=== PATIENT | female | born 1935 | race Caucasian/White ===

== ENCOUNTER 2020-08-09 20:16 | Inpatient (IN) | payer OTHER ==
[~2020-08-09] VITALS: Ht 157.5 cm; Wt 73.7 kg
[2020-08-09 20:16] VITALS: BP 121/60
[2020-08-09 21:01] LABS: HEMOGLOBIN 13.6 gm/dL (12.0-15.0); RDW 16.2 % (10.5-14.5)
[2020-08-09 21:02] LABS: ABSOLUTE NEUTROPHILS 4.1 thou/uL (1.4-8.2); BASOPHILS 0.6 % (0.0-2.0); EOSINOPHILS 3.6 % (0.0-3.0); HEMATOCRIT 41.5 % (37.0-47.0); LYMPHOCYTES 33.6 % (24.0-44.0); MCH 31.6 pg (26.0-34.0); MCHC 32.7 g/dL (28.0-37.0); MCV 96.5 fL (80.0-100.0); MONOCYTES 7.1 % (1.0-8.0); PLATELET COUNT 229 thou/uL (150-400); POLYS 55.1 % (36.0-66.0); WBC 7.4 thou/uL (4.0-11.0)
[2020-08-09 21:06] LABS: ANION GAP 11 mmol/L (7-16); BUN 12 mg/dL (7-18); CALCIUM 8.9 mg/dL (8.5-10.1); CHLORIDE 101 mmol/L (98-107); CO2 26 mmol/L (21-32); CREATININE 1.4 mg/dL (0.6-1.0); GLUCOSE 245 mg/dL (74-106); POTASSIUM 3.8 mmol/L (3.5-5.1); SODIUM 138 mmol/L (136-145)
[2020-08-09 21:13] LABS: ALBUMIN 3.2 g/dL (3.4-5.0); SGOT 25 U/L (15-37); SGPT 26 U/L (30-65); TOTAL BILIRUBIN 0.4 mg/dL (0.2-1.0)
[2020-08-09 21:22] LABS: URINE BILIRUBIN NEGATIVE (Negative); URINE BLOOD 1+ (Negative); URINE CLARITY CLEAR; URINE COLOR YELLOW; URINE GLUCOSE-RANDOM* NEGATIVE (Negative); URINE KETONES NEGATIVE (Negative); URINE LEUKOCYTES-REFLEX 3+ (Negative); URINE NITRITE-REFLEX NEGATIVE (Negative); URINE PROTEIN (DIPSTICK) NEGATIVE (Negative); URINE SPECIFIC GRAVITY 1.025 (1.005-1.035); URINE UROBILINOGEN 0.2 E.U./dl (0.2-1.0)
[2020-08-09 21:27] LABS: BACTERIA-REFLEX >30 Many /HPF (None Seen); URINE WBC-REFLEX >25 Many /HPF (0-5)
[2020-08-09 21:28] LABS: CASTS None Seen /LPF (None Seen); CRYSTALS None Seen /LPF (None Seen); SQUAMOUS 0-3 Few /LPF (0-3); URINE RBC 0-2 Rare /HPF (0-2)
[2020-08-09 21:32] LABS: AMP/METHAMP Negative (Negative); BARBITURATES Negative (Negative); BENZODIAZEPINES Negative (Negative); COCAINE Negative (Negative); METHADONE Negative (Negative); OPIATES Negative (Negative); PCP Negative (Negative)
[2020-08-09 21:32] LABS: SALICYLATE < 2.8 mg/dL (2.8-20.0)
--- NOTE | 2020-08-10 03:41 | NUR ---
IN ED OBS WAITING ON COVID19 RESULTS. REFERRED FROM [facility] FOR AGITATION, UTI, REFUSING MEDS AND AMS. WAS POSITIVE FOR COVID19 ON , STARTED ON CEPHALEXIN 500 FIRST DOSE @ 0304. ORIENTED X2, REPORTS IS NOT SURE WHY SHE IS AT THE HOSPITAL, BELIEVES SHE IS STILL @ [facility]. REPORTS A GOOD APPETITE, IS ON CARB CONTROL DIET. REPORTS 5 STINTS IN THE HEART. REPORTS CAN AMBULATE WITH A WALKER AND X1 ASSIST TO "WALK BEHIND ME WITH A CHAIR IN CASE I FALL. DOES NOT HAVE DENTURES, REPORTS CAN BRUSH TEETH BY SELF, REPORTS NEEDS HELP WITH [facility]. MEDICAL HX FROM [facility]: DEMENTIA WITH LEWY BODIES, ENCEPHALOPATHY, TYPE 2 DIABETES MELLITUS WITH DIABETIC NEUROPATHY, HTN HEART DISEASE WITH HEART FAILURE, CHRONIC PANCREATITIS, LYMPHEDEMA, CONGESTIVE HEART FAILURE, POLYOSTEOARTHRITIS, HYPOTHYROIDISM, HYPERLIPEDEMIA, MAJOR DEPRESSIVE DISORDER. 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 PATIENT IS A DNR, WITH SIGNED DOCUMENTATION IN CHART. [place] [phone]
--- NOTE | 2020-08-10 07:25 | EKG ---
[facility] [place] [address] ELECTROCARDIOGRAM REPORT Name: BAIRON FONTAINE Room #: 170-23 ADM IN M.R.#: [id number] Admission: 08/09/20 Attend Phys: Wilbur Reyes MD Discharge: Date of : 35 Report #: [id number] THIS REPORT FOR: cc: Naveed Muro MD, Dennis R MD Santiago, Patrick MD [facility] ~ THIS REPORT FOR: //name// [facility] ED Test Date: 2020-08-09 Test Time: 20:35:28 Pat Name: BAIRON FONTAINE Department: Room: 170 Gender: F Fill Manager: : 1935 Requested By: Marquita Atwood Order Number: [id number] MD: Rob Patricia Measurements Intervals [place] Rate: 83 P: -85 FL: 197 QRS: -71 QRSD: 146 T: 95 QT: 450 QTc: 529 Interpretive Statements Sinus or ectopic atrial rhythm Consider left atrial enlargement Right bundle branch block LVH with IVCD and secondary repol abnrm Probable inferior infarct, old Prolonged QT interval No previous ECG available for comparison Electronically Signed On 08-10-2020 7:25:14 [employer]NUT [employer]NER by Rob Patricia [email or web address] <ELECTRONICALLY SIGNED> By: Rob Patricia MD, FACC 08/10/20724 34 34 Rob Patricia MD, FAC /EPI
[2020-08-10] MEDS ORDERED: TYLENOL EXTRA500 MG PO (08:32)
[2020-08-10] MEDS ORDERED: ASA81BEC PO (08:33)
[2020-08-10] MEDS ORDERED: BUSPIRONE HCL5 MG PO (08:33)
[2020-08-10] MEDS ORDERED: LIPITOR40 MG PO (08:33)
[2020-08-10] MEDS ORDERED: COREG6.25 MG PO (08:34)
[2020-08-10] MEDS ORDERED: LEVEMIR100 UNIT/1 SUBQ (08:35)
[2020-08-10] MEDS ORDERED: COLACE100 MG PO (08:35)
[2020-08-10] MEDS ORDERED: EUTHYROX100 MCG PO (08:36)
[2020-08-10] MEDS ORDERED: MILK OF MA400 MG/5 M PO (08:37)
[2020-08-10] MEDS ORDERED: NOVOLOG100 UNIT/M SUBQ (08:38)
[2020-08-10] MEDS ORDERED: NOVOLOG100 UNIT/1 SUBQ (08:38)
[2020-08-10] MEDS ORDERED: SEROQUEL 50 MG50 M1 PO (08:39)
--- NOTE | 2020-08-10 09:55 | NUR ---
THIS NURSE GAVE PT POC UPDATE TO DPOA DAUGHTER ROSEANNA HARRINGTON.
[2020-08-10 10:41] LABS: FOLIC ACID 6.8 ng/mL (8.6-58.9); TSH 41.041 uIU/mL (0.358-3.740)
[2020-08-10 12:37] VITALS: BP 130/70
[2020-08-10 15:24] VITALS: BP 130/77
--- NOTE | 2020-08-10 18:30 | NUR ---
[age] OLD FEMALE ADMITTED TO [facility] ROOM 361. PT WAS BROUGHT INTO THE ER PER EMS AFTER BEING AGRESSIVE TOWARDS CARE HOME STAFF. PT HAS BEEN CLAM AND COOPERATIVE, WITH A BLUNTED AFFECT ON ADMISSION TO [facility]. PT DID REFUSE TO SIGN ADMISSION FORMS. VSS. PT DENIES PAIN/SOA. PT ATE SMALL PORTION OF DINNER. PLACED IN ISOLATION FOR POSIIVE COVID TEST. WILL CONTINUE TO MONITOR.
[2020-08-10 19:24] VITALS: BP 143/96
[2020-08-11 04:21] VITALS: BP 167/83
[2020-08-11 05:07] LABS: GLYCOHEMOGLOBIN (HGB A1C) 7.8 % (4.8-5.6)
--- NOTE | 2020-08-11 05:44 | NUR ---
Pt. rested quietly during the night when checked on during frequent rounds. She does get combative at times during direct care. Pt. refused all of her meds during the shift. Incontinent of urine and tony care given. Bed alarm is on.
[2020-08-11 05:51] LABS: HEMATOCRIT 43.5 % (37.0-47.0); HEMOGLOBIN 14.4 gm/dL (12.0-15.0); MCH 32.2 pg (26.0-34.0); MCV 97.5 fL (80.0-100.0); PLATELET COUNT 235 thou/uL (150-400); RBC 4.47 mil/uL (4.20-5.00); RDW 16.2 % (10.5-14.5); WBC 14.3 thou/uL (4.0-11.0)
[2020-08-11 06:07] LABS: MAGNESIUM 1.5 mg/dL (1.8-2.4)
[2020-08-11 08:00] VITALS: BP 140/83
[2020-08-11 08:58] LABS: ABSOLUTE NEUTROPHILS 7.2 thou/uL (1.4-8.2); NUCLEATED RBCS 1 /100WBC; PLATELET ESTIMATE NORMAL
[2020-08-11 11:00] VITALS: BP 135/85
[2020-08-11 15:00] VITALS: BP 91/55
--- NOTE | 2020-08-11 18:48 | NUR ---
ASSUMED PATIENT CARE AT 0700. ALERT. CONFUSED AND AGITATED. INCONTNUE. GOOD APPETITE. VSS, SLOWLY TOWARDS POC GOALS.
[2020-08-11 19:48] VITALS: BP 89/67
[2020-08-12 03:59] VITALS: BP 100/61
[2020-08-12 08:01] VITALS: BP 107/60
[2020-08-12 15:19] VITALS: BP 124/62
--- NOTE | 2020-08-12 15:33 | NUR ---
Patient admits from [facility] to be admitted to [facility]. Patient tested positive for COVID and diverted to COVID unit. Left message with [facility] Admissions. Sp with dtr. She reports patient prev was living at [facility] for 6 years then Admitted to [facility] December 03. December 09 the facility shut down. Dtr was unable to decorate her room or prepare her for transition. Patient was tested and resulted COVID positive on JUL 05. She reports [facility] has different levels of COVID units. She reports patient on COVID unit then after 10 days goes to another unit. Dtr reports she is familiar with patients diagnosis of Lewy Body dementia. She reports she can be combative. She is concerned with her not eating and drinking. She reports the lock down has been very difficult for her and the moving around within the facility. She has seen patient through window and patient has said "what did I do to deserve this." Tenative plan for [facility] then transition to [facility] once stable.
--- NOTE | 2020-08-12 19:12 | NUR ---
ASSUMED PATIENT CARE AT 0700. CONFUSED. REFUSED TO HACE MEDS. AFEBRILE. VSS. SLOWLY TOWARDS POC GOALS.
[2020-08-12 19:34] VITALS: BP 131/65
--- NOTE | 2020-08-13 03:50 | NUR ---
Patient making slow progress towards outcome goals. Patient with periods on combativeness, hitting staff and throwing what she can reach. Security called for assistance in administering medications. High fall risks, fall precautions in place. COVID positive. On room air. No breathing difficulty. Incontinent or urine.
[2020-08-13 04:23] VITALS: BP 150/73
[2020-08-13 08:16] VITALS: BP 132/79
--- NOTE | 2020-08-13 10:58 | NUR ---
PT. WAS COMBATIVE THIS MORNING WHEN I WENT OT GIVE HER A SHOT BUT THEN CALMED DOWN QUICKKLY ONCE THAT WAS OVER WITH. SHE TOLD ME HER SON HAD BUT THEN WHEN I TALKED TO THE DAUGHTER THIS WAS NOT TRUE-CONFUSION. OVERALL MUCH CALMER THIS AM THEN LAST NIGHT. BREATHING ON ROOM AIR WITH SATURATIONS IN THE MID 90'S WITH NO SIGNS OF RESPIRATORY DISTRESS. IV FLUSHED NO SING'S OF DISTRESS.
--- NOTE | 2020-08-13 14:44 | NUR ---
SW reviewed chart and spoke with nursing and attending physician. Pt remains in Enhanced Isolation due to COVID-19. Pt is afebrile and not requiring O2. Pt is on IV abx. Discussed case with Infection Control to see if pt is able to be transferred to [facility]. Pt was admitted from [facility] for admission to [facility]. Awaiting input from ID physician. [facility] is following to assist as needed with discharge planning.
[2020-08-13 15:53] VITALS: BP 142/120
--- NOTE | 2020-08-13 17:38 | NUR ---
RECIEVED PATIENT ON UNIT FROM 3W AT APPROX. 1730 WITH MEAL TRAY. PATIENT WAS ALREADY EATING AND DECLINED COVERAGE WITH INSULIN. ON PRECAUTIONARY ISOLATION FOR COVID 19. PATIENT HAS A HX OF BEING COMBATIVE BUT NOT DISPLAYING ISSUES AT THIS TIME. WILL CONTINUE TO MONITOR AND ENDORSES TO NIGHT NURSE
--- NOTE | 2020-08-14 06:30 | NUR ---
Pt. has been awake most of the night when checked on during frequent rounds. She can be combative at times ecspecially during direct care. She attempted to bite at the epic director when changing her wet pad. Pt. also refused her bedtime meds, but took her am pills. Bed alarm is on.
[2020-08-14 07:58] VITALS: BP 133/64
--- NOTE | 2020-08-14 14:55 | NUR ---
ASSUMED PT CARE THIS AM. PT VSS. PT CALM AND COOPERATIVE WITH STAFF. PT MAKES STATEMENTS THAT SHE DOESN'T WANT TO BE HURT, AND APPRECIATES BEING TOLD WHAT IS BEING DONE TO HER AT ALL TIMES. PT CALLS OUT WHEN NEEDED. APPETITE IS GOOD. FLUIDS ENCOURAGED. IV PATENT.
[2020-08-14 16:10] VITALS: BP 105/68
[2020-08-14 20:00] VITALS: BP 130/57
[2020-08-14 23:27] LABS: URINE BILIRUBIN NEGATIVE (Negative); URINE BLOOD 1+ (Negative); URINE CLARITY CLEAR; URINE COLOR YELLOW; URINE GLUCOSE-RANDOM* NEGATIVE (Negative); URINE KETONES NEGATIVE (Negative); URINE NITRITE-REFLEX NEGATIVE (Negative); URINE PROTEIN (DIPSTICK) NEGATIVE (Negative); URINE UROBILINOGEN 0.2 E.U./dl (0.2-1.0)
[2020-08-14 23:28] LABS: URINE LEUKOCYTES-REFLEX 2+ (Negative)
[2020-08-14 23:50] LABS: BACTERIA-REFLEX 1-9 Few /HPF (None Seen); CASTS None Seen /LPF (None Seen); MUCUS 0-3 Light strn/LPF (None Seen); SQUAMOUS 0-3 Few /LPF (0-3); URINE RBC 0-2 Rare /HPF (0-2); URINE WBC-REFLEX 0-5 Rare /HPF (0-5)
[2020-08-14 23:51] LABS: CRYSTALS None Seen /LPF (None Seen)
--- NOTE | 2020-08-15 05:13 | NUR ---
ASSUMED PT'S CARE @ 1900. PT ALERT AND ORIENTED X3. CONFUSED. FORGETFUL. PT WAS COOPERATIVE MOST OF NIGHT BUT DID GET AGITATED WHEN NURSING AND RELIGIOUS RITUAL SLAUGHTERER WANTED TO INSPECT PUREWICK CATHETER. DID NOT REQUIRE MEDICATION AT THAT TIME. 0015 CEFEPIME ABX NOT GIVEN DUE TO RFA IV INFILTRATION. PT REFUSED BEING STUCK AND WAS STARTING TO GET AGITATED. METAL TILE SETTER ROCK WOOL INSULATOR SHARATH NOTIFIED. PER SHARATH, OK TO SKIP CEFEPIME TONIGHT. MAY HAVE IV TEAM START ONE IN THE AM IF PT IS STAYING LONGER. NURSING SUGGESTED MIDLINE OR PICC IF PT TO BE ON IV ABX FOR A LONGER TIME. CALL LIGHT WITHIN REACH. WILL CONTINUE TO MONITOR.
[2020-08-15 07:40] VITALS: BP 134/68
--- NOTE | 2020-08-15 16:17 | NUR ---
ASSUMED PT CARE THIS AM. PT VSS, A&OX2. WAS TOLD IN REPORT THAT PT REMOVED IV OVERNIGHT AND THAT DR WAS CONSULTED REGARDING IF ABX COULD BE SWITCHED TO ORAL. DR MADE AWARE DURING DAY SHIFT AND DR ADVISED PT WOULD BE SWITCHED TO ORAL ABX WELL. NO MED CHANGES WERE MADE, SO IV NURSE CAME AND PLACED A NEW IV. PT DID NOT RECEIVE 12AM DOSE OF ABX LAST NIGHT, BUT 12PM DOSE STARTED SOON NEW IV WAS PLACED. PT AGITATED TODAY WITH STAFF. REFUSES Q2H TURNS. REPORTS NO PAIN. PUREWICK IN PLACE. TAKES MEDS IN PUDDING. FLUIDS ENCOURAGED.
[2020-08-15 17:23] VITALS: BP 133/55
[2020-08-15 19:17] VITALS: BP 122/52
[2020-08-15 21:29] LABS: CALCIUM 8.6 mg/dL (8.5-10.1); CREATININE 1.2 mg/dL (0.6-1.0); POTASSIUM 3.9 mmol/L (3.5-5.1)
[2020-08-16 06:19] LABS: ABSOLUTE NEUTROPHILS 3.7 thou/uL (1.4-8.2); BASOPHILS 0.6 % (0.0-2.0); HEMATOCRIT 36.2 % (37.0-47.0); HEMOGLOBIN 11.8 gm/dL (12.0-15.0); LYMPHOCYTES 29.4 % (24.0-44.0); MCHC 32.5 g/dL (28.0-37.0); MCV 98.4 fL (80.0-100.0); MONOCYTES 6.5 % (1.0-8.0); PLATELET COUNT 204 thou/uL (150-400); POLYS 59.5 % (36.0-66.0); RBC 3.68 mil/uL (4.20-5.00); RDW 16.4 % (10.5-14.5); WBC 6.2 thou/uL (4.0-11.0)
--- NOTE | 2020-08-16 07:20 | NUR ---
Pt. rested quietly at intervals during the night when checked on during frequent rounds. She has been cooperative with cares during the shift. No c/o pain. Bed alarm is on.
[2020-08-16 07:39] VITALS: BP 112/45
--- NOTE | 2020-08-16 11:49 | NUR ---
ASSUMED CARE AT SHIFT CHANGE. ASSESSMENT PER CHART. REPORT GIVEN TO KARIN FRANK AT THIS TIME MY ASSIGNMENT HAS CHANGED.
--- NOTE | 2020-08-16 14:45 | NUR ---
Nutrition: pt admitted with COVID + status, UTI and seen due to LOS. Pt eating well, 70-100% of meals on regular diet. Hx DM and BG 185-318. RD adding carb controlled to diet order. On SSI. No steroid at present. Vitamin D and folic acid deficiencies-supplementing. Also on B12, ascorbic acid and thiamine. Pt unsure of UBW but not aware of loss. Both 175# and 162# taken this admit. Will follow trends for accuracy. Obtained pt's dinner order per food preferences and pt would like to trial glucerna daily. Consider low nutrition risk.
--- NOTE | 2020-08-16 14:55 | NUR ---
CM SPOKE WITH HOSPITALIST AND PSYC PHYSICIAN. IT HAD BEEN INDICATED THAT PT WOULD BE APPROPRIATE TO RETURN TO FACILITY RATHER THAN TO [facility]. CM CONTACTED [facility] AND FAXED CLINICAL UPDATE. THEY INDICATED THEY WOULD BE ABLE TO ACCEPT PT. CM SPOKE WITH PT'S DTR AND SHE IS IN AGREEMENT WITH PT RETURNING TO FACILITY ONCE MEDICALLY STABLE. CM NOTIFIED FACILITY AND DTR AND BOTH ARE AWARE AND AGREEABLE WITH ANTICPATED DC BACK TO [facility] SUNDAY. CM TO FOLLOW INDICATED WITH DC PLANNING.
[2020-08-16 17:59] VITALS: BP 112/45
[2020-08-16 18:00] VITALS: BP 122/57
--- NOTE | 2020-08-16 20:30 | NUR ---
ASSUMED CARE OF THE PATIENT AT 1200, REPORT RECEIVED FROM SIMA/RN. PATIENT ALERT X 2, NO AGITATION, FOLLOWS COMMAND. MAX ASSIST X 2, PT/MARIUM WOKRED WITH THE PATIENT TODAY. PATIENT HAD BOWEL MOVEMENT WHILE HAVING PHYSICAL THERAPY. INCONTINENT OF BLADDER/BOWEL, FEMALE EXTERNAL CATHETER IN PLACE. CXR DONE TODAY FOR PNEUMONIA. ACCU'S DONE INSULIN GIVEN PER SLIDING SCALE. DIETITIAN SAW THE PATIENT RODAY, WILL CHANGE DIET TO CARB CONTROL. PATIENT IS STILL POSITIVE FOR COVID BUT NO ISOLATION AT THIS TIME, SHE IS PASS HER TIME WITH COVID PER ANIBAL/INFECTION NURSE. DENIES PAIN THIS SHIFT. DAUGHTER/ROSEANNA AT BEDSIDE THIS AFTERNOON, AND BROUGHT THE PATIENT SNACKS FORM ARABELLALashon PETE, EDUCATED DAUGHTER OF BLOOD SUGAR ELEVATED, SHE WAS AWARE. WILL CONTINUE TO MONITOR.
[2020-08-16 21:50] VITALS: BP 143/62
--- NOTE | 2020-08-17 02:32 | NUR ---
Assumed pt care at 1900. A/OX3 with forgetfulness noted. Pt is calm but gets agitated during cares with staff.Bed bath completed at HS with pt being combative towards the end of it no intervention needed. Pt took meds at HS w/o any problems. Female catheter in place draining dark yellow urine. PIV patent on left hand wrapped in coban and SL. Fall precautions in place,frequent checks on pt. Resting quietly at this time w/o any distress noted,will continue to monitor pt.
[2020-08-17 11:08] VITALS: BP 132/71
--- NOTE | 2020-08-17 11:22 | NUR ---
ASSUMED PT CARE THIS AM. PT VSS OTHER THAN ELEVATED PULSE. PT A&OX2. PT WOKE FOR ASSESSMENT AND MEDS, HOWEVER SHE REFUSED MOST OF HER MEDS. PT NOT ALLOWING STAFF TO REPOSITION HER. PT WAS COMBATIVE WITH HALAL MEAT PACKER THIS AM WITH VITAL SIGNS, BUT SHE ALLOWED.
--- NOTE | 2020-08-17 15:53 | NUR ---
HOSPITALIST HAD PUT IN A TENTATIVE DC ORDER IN OP PT TODAY AWAITING FINAL ID RECS. ID SAW PT AND NOTE SAYS WILL COMPLETE IV ABX TOMORROW. SHOULD CARE TEAM INDICATED THAT PT IS MEDICALLY STABLE FOR PT TO DISHCARGE BACK TO [facility] THIS DAY. CONTACT [facility] IN ADMSSIONS AT TO SET UP [facility]SP[facility]. FAX FINAL ORDERS TO . CALL REPORT TO FACILITY AT . CM TO FOLLOW INDICATED WITH DC PLANNING.
[2020-08-17 16:32] VITALS: BP 133/55
[2020-08-17] MEDS ORDERED: VITAMIN B-1100 M2 PO (17:04)
[2020-08-17] MEDS ORDERED: ZINC SULFATE 2220 MG PO (17:04)
[2020-08-17] MEDS ORDERED: VITAMIN D21250 MC1 PO (17:04)
[2020-08-17] MEDS ORDERED: VITAMIN B-12500 MCG PO (17:04)
[2020-08-17] MEDS ORDERED: FOLIC ACID1 MG PO (17:04)
[2020-08-17] MEDS ORDERED: VITCB500GO PO (17:04)
[2020-08-17 20:53] VITALS: BP 144/69
--- NOTE | 2020-08-18 04:21 | NUR ---
Assume dpt care at 1900. Pt A/OX1-2,sleepy but fussy when you awaken her. Took HS meds w/o any problems,water offered to pt but she declined saying "Thank you I don't want it". Pt's dtr called at HS and update on why pt didn't see to SNF yesterday, dtr also called pt and spoke to her as well. Pt incontinent of B&B this shift. Resting quietly without any discomfort noted at this time,will continue to monitor pt. Fall precautions in place.
[2020-08-18 07:20] VITALS: BP 137/54
[2020-08-18 08:20] VITALS: BP 137/54
--- NOTE | 2020-08-18 09:51 | NUR ---
PT IS TO DC BACK TO [facility] THIS DAY. CHART COPY MADE. ORDERS FAXED. NURSE HAS NUMBER FOR REPORT. [facility] TRANSPORT ARRANGED FOR 11:00. CM NOTIFIED PT AND DTR. BOTH ARE AWARE AND AGREEABLE. NO OTHER CM INTERVENTION INDICATED. CASE CLOSED.
--- NOTE | 2020-08-18 11:28 | NUR ---
ASSUMED PT CARE THIS AM. PT VSS, A&OX3. PT AWOKE FOR MEDS, TOOK THEM ALL THIS AM. NO INSULIN REQUIRED THIS AM. PT ENCOURAGED TO DRINK FLUIDS. ATE ONLY A SMALL PORTION OF HER BREAKFAST. PUREWICK IN PLACE. PT PLEASANT AND COOPERATIVE WITH STAFF AT THIS TIME. MEDIUM SIZE BM TODAY. PT HAS NON-PRODUCTIVE COUGH. IV PATENT, SALINE LOCKED. PT TO DISCHARGE AT 11 AM. REPORT CALLED TO FACILITY. BELONGINGS SENT WITH PATIENT. DT LEFT UNIT AT 1130.
== END 2020-08-18 11:26 | DRG 177 ==
LOC: ER 20:16 → 3W 23:28 → EROBS 23:28 → 3W 08-10 13:41 → 4W 08-13 16:53
PROVIDERS: Nurse Practitioner; Physician Assistant; Specialist; ADMIT Hospitalist; ATTEND Hospitalist
DX: U07.1 COVID-19 (principal); J69.0 Pneumonitis due to inhalation of food and vomit; G92 Toxic encephalopathy; N39.0 Urinary tract infection, site not specified; N17.9 Acute kidney failure, unspecified; E44.0 Moderate protein-calorie malnutrition; R45.1 Restlessness and agitation; I10 Essential (primary) hypertension; E78.5 Hyperlipidemia, unspecified; E03.9 Hypothyroidism, unspecified; E11.9 Type 2 diabetes mellitus without complications; F32.9 Major depressive disorder, single episode, unspecified; F41.9 Anxiety disorder, unspecified; G20 Parkinson's disease; I25.10 Atherosclerotic heart disease of native coronary artery without angina pectoris; F03.90 Unspecified dementia, unspecified severity, without behavioral disturbance, psychotic disturbance, mood disturbance, and anxiety; E53.8 Deficiency of other specified B group vitamins; Z95.5 Presence of coronary angioplasty implant and graft; Z88.1 Allergy status to other antibiotic agents; Z88.8 Allergy status to other drugs, medicaments and biological substances; Z68.29 Body mass index [BMI] 29.0-29.9, adult; Z79.899 Other long term (current) drug therapy
CPT/HCPCS: 10040; 10045; 10879